=== PATIENT | male | born 1985 | race Hispanic/Latino ===

== ENCOUNTER 2016-11-27 17:37 | Emergency (ER) | payer MEDICAID, OTHER ==
[~2016-11-27] VITALS: Ht 167.6 cm; Wt 95.0 kg
[~2016-11-27 17:37] MED LIST: CLE150 PO; HUM3INSU SQ; NOMED; OXY5 PO
[2016-11-27 17:51] VITALS: BP 158/107; PULSE 88; RESP 18; O2SAT 98
--- NOTE | 2016-11-27 19:27 | ED.REPORT ---
HPI-URI / Cough / Cold Date of Service Nov 27, 2016 ED Provider: Valerie Graham History of Present Illness: sore throat stuffy nose since saturday. slept all day yesterday. sent home from work today. Nursing Notes Stated Complaint: FLU Chief Complaint: FLU/Cold Symptoms Nursing Notes Reviewed: Yes Allergies: Coded Allergies: No Known Allergies (Verified Allergy, Unknown, 04/02/14) Scheduled Clindamycin (Cleocin) 150 Mg Capsule 450 MG PO QID HUM INSULIN NPH/REG - Inactive Drug Entry (Humulin 70-30 - Inactive Drug Entry) 100 Unit/Ml Insuln.pen 0 SQ BID Scheduled PRN oxyCODONE-Expunged, Do Not Renew! 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 11/27/2016 Ambulatory Status Independent Review of Systems Basic Review of Systems Cardiovascular: No chest pain, No dyspnea on exertion, No orthopnea, No parox noct dyspnea, No palpitations : No dysuria, No frequency Musculoskeletal: No extremity swelling, No extremity pain, Full range of motion , Joints NL Hematologic: No bleeding, No bruising Endocrine: No cold intolerance, No heat intolerance, No weight gain, No weight loss Psychiatric: Normal thought content Physical Exam Initial Vital Signs Vital Signs (First) Date Time Temp Pulse Resp B/P Pulse Ox O2 Delivery O2 Flow Rate FiO2 11/27/16 17:51 36.4 88 18 158/107 98 Room Air Initial VS: Reviewed, Vital signs abnormal Head / Eyes: Atraumatic, Normocephalic, PERRL Neck: Supple, Non-tender, Full range of motion Cardiovascular: Regular rate & rhythm, Heart sounds normal, Intact distal pulses Abdomen / GI: Soft, Non-tender, No guarding, No rebound, No distention Back: No CVA tenderness Lymphatic: No lymphadenopathy Extremities: Vascular intact, Neuro intact, No swelling, No tenderness Skin: Warm, Dry, No cyanosis Neurologic: Alert, Oriented, Nonfocal Psychiatric: Mood/affect normal, Behavior normal, Normal thought content General/Constitutional: Awake, Alert, No acute distress, Well appearing, Well developed, Well hydrated ENT: Atraumatic, Airway patent, Mucous membranes moist, Pharynx NL Respiratory / Chest: Atraumatic, Breath sounds NL, Breath sounds = bilat Head / Eyes: Atraumatic, Normocephalic, PERRL, EOMI Interpretation & Diagnostics Lab Results Interpretation Lab Results Interpretation: influenza is negative, strep is negative X-Ray Chest Interpretation Chest Xray Interpretation: NDICATIONS: cough fever TECHNIQUE: 2 views of the chest were acquired. COMPARISON: [facility], , CHEST 1VW, 05/22/2012, 7:44. [facility], CHEST 2VW, 10/09/2009, 15:06. FINDINGS: Surgical changes and devices: None. Lungs and pleura: No pleural effusions or pneumothorax. Lungs are clear. Mediastinum: Mediastinal contours are normal. Heart size is normal. Bones and chest wall: No suspicious bony abnormalities. Soft tissues appear unremarkable. IMPRESSION: No acute cardiopulmonary disease. Discharge & Departure Impression: Primary Impression: Upper respiratory infection URI type: unspecified viral URI Qualified Code: J06.9 - Acute upper respiratory infection, unspecified Disposition: Home Patient Instructions: Upper Respiratory Infection (ED) Additional Instructions: It is so good to see you! I am so proud that you have a job!!! Your influenza is negative. The strep is negative. The chest x-ray is negative. Use ibuprofen 800 mg 3 times a day for 5 days. Push fluids. Note for work, off today tomorrow and . REturn with any concerns. Please stop by and say Hi to Evon, she will be so excited to see you!! Referrals: [facility] EDSupervising Provider for APC: Therese Benavides MD copies to: [facility] Valerie Graham Nov 27, 2016 19:27
[2016-11-27] MEDS ORDERED: Ketorolac 30 mg/mL 2 mL Inj IM ONE (19:35)
--- NOTE | 2016-11-27 20:16 | DRSVH ---
PROCEDURE: X-RAY CHEST, TWO VIEWS ([id number]) INDICATIONS: cough fever TECHNIQUE: 2 views of the chest were acquired. COMPARISON: [facility], CR, CHEST 1VW, 05/22/2012, 7:44. [facility], CR, [address] 2VW, 10/09/2009, 15:06. FINDINGS: Surgical changes and devices: None. Lungs and pleura: No pleural effusions or pneumothorax. Lungs are clear. Mediastinum: Mediastinal contours are normal. Heart size is normal. Bones and chest wall: No suspicious bony abnormalities. Soft tissues appear unremarkable. IMPRESSION: No acute cardiopulmonary disease. Dictated by: Latha Begum M.D. on 11/27/2016 at 20:15 Approved by: Latha Begum M.D. on 11/27/2016 at 20:15
[2016-11-27 20:49] VITALS: BP 115/77; PULSE 88; RESP 18; O2SAT 88
== END 2016-11-27 20:50 | disposition home or self-care (01) ==
LOC: SED 17:37
DX: J06.9 Acute upper respiratory infection, unspecified (principal); F17.200 Nicotine dependence, unspecified, uncomplicated
CPT/HCPCS: 71020; 87804; 87880; 96372; 99284; J1885

== ENCOUNTER 2016-11-30 00:17 | Emergency (ER) | payer OTHER ==
[~2016-11-30] VITALS: Ht 167.6 cm; Wt 94.5 kg
[2016-11-30 00:20] VITALS: BP 135/83; PULSE 105; RESP 16; O2SAT 93
[2016-11-30] MEDS ORDERED: 0.9% Sodium Chloride 1,000 ML IV ONE (01:12)
--- NOTE | 2016-11-30 01:12 | ED.REPORT ---
HPI-General Illness Date of Service Nov 30, 2016 ED Provider: Royce Philip DO A 31 year old male with a history of diabetes and hepatitis C presents to the ED complaining of frequent urination and vomiting. He believes that these symptoms are related to his diabetes. He was recently imprisoned for three years , and was taken off of his diabetic plan while incarcerated. He was not started on insulin and received no treatment. Over the last year, he has begun to feel abnormal with frequent urination. This became progressively worse following his release on 11/20/2016, and was accompanied by frequent vomiting. The pt also admits to recent cough. When the pt checked his sugar prior to arrival, he found it to be 443. Nursing Notes Stated Complaint: DIZZY, VOMITING, FREQUENT URINATION Chief Complaint: General Complaint Nursing Notes Reviewed: Yes Allergies: Coded Allergies: No Known Allergies (Verified Allergy, Unknown, 04/02/14) Scheduled Clindamycin (Cleocin) 150 Mg Capsule 450 MG PO QID HUM INSULIN NPH/REG - Inactive Drug Entry (Humulin 70-30 - Inactive Drug Entry) 100 Unit/Ml Insuln.pen 0 SQ BID Scheduled PRN oxyCODONE-Expunged, Do Not Renew! (oxyCODONE-Expunged, Do Not Renew!) 5 Mg Tablet 0 MG PO Q4H PRN PRN Miscellaneous Medications No Historical Medication (No Historical Medication) Ea General Time Seen by MD: 01:12 Chief Complaint Vomiting Hx Obtained From: Patient Arrived By: Walk-in Sudden in Onset?: No Onset Occurred: More than a week ago... 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 11/27/2016 Ambulatory Status Independent Review of Systems Full Review of Systems Respiratory: Reports: Prod cough, clear, Denies: Shortness of breath Cardiovascular: Denies: Chest pain GI: Reports: Vomiting Male: Reports Urinary frequency Musculoskeletal: Denies: Back pain, Neck pain Skin: Denies Rash Complete sys rev & neg: except as marked. Physical Exam Vital Signs Vital Signs Date Time Temp Pulse Resp B/P Pulse Ox O2 Delivery O2 Flow Rate FiO2 11/30/16 05:09 36.6 88 18 136/82 94 Room Air 11/30/16 03:00 36.5 96 18 142/88 95 Room Air 11/30/16 00:20 36.2 105 16 135/83 93 Room Air Initial VS: Reviewed General/Constitutional: Awake, Alert Head / Eyes: Atraumatic, Normocephalic, PERRL, EOMI ENT: Atraumatic, Airway patent Mouth: Positive: Mucous membranes dry Neck: Atraumatic, Supple, Full range of motion Respiratory / Chest: Atraumatic, No respiratory distress rhonchi and rales mid left lung field Cardiovascular: Regular rhythm, Heart sounds NL Heart Rate / Rhythm: Positive: Tachycardia Abdomen: Atraumatic, Soft, Non-tender Back: Atraumatic, Full range of motion Upper Extremities Upper Extremity / MS: Atraumatic, Full range of motion Lower Extremity / Pelvis / MS: Atraumatic, Full range of motion Skin: Atraumatic, Color NL, No rash, Warm, Dry Neurologic: Oriented X3, Speech NL, No motor deficits, No sensory deficits Psychiatric: Affect NL, Mood NL Interpretation & Diagnostics Lab Results Interpretation Result Diagram: 11/30/16 0110 11/30/16 0110 Test 11/30/16 01:10 11/30/16 01:50 White Blood Count 7.1th/mm3 (3.8-10.1) Red Blood Count 5.08mil/mm3 (4.40-5.80) Hemoglobin 16.0g/dL (13.8-17.2) Hematocrit 46.0% (41.0-50.0) Mean Corpuscular Volume 90.6fL (81-100) Mean Corpuscular Hemoglobin 31.5pg (27.0-35.0) Mean Corpuscular Hemoglobin Concent 34.8% (32.0-37.0) Red Cell Distribution Width 11.9% (12.3-15.4) Platelet Count 209bil/L (150-400) Neutrophils (%) (Auto) 71.9% (40-74) Lymphocytes (%) (Auto) 17.1% (14-46) Monocytes (%) (Auto) 10.8% (4-12) Eosinophils (%) (Auto) 0% (0-5) Basophils (%) (Auto) 0.1% (0-3) Sodium Level 134mEq/L (134-144) Potassium Level 4.5mEq/L (3.5-5.2) Chloride Level 89mEq/L (97-108) Carbon Dioxide Level 26mmol/L (18-29) Blood Urea Nitrogen 16mg/dL (6-20) Creatinine 0.79mg/dL (0.76-1.27) Estimat Glomerular Filtration Rate 120mL/min (>59) Glucose Level 358mg/dL (60-99) Lactic Acid Level 1.9mmol/L (0.4-2.0) Calcium Level 9.7mg/dL (8.5-10.1) Magnesium Level 1.7mg/dL (1.6-2.6) Total Bilirubin 0.7mg/dL (0.0-1.2) Aspartate Amino Transf (AST/SGOT) 42U/L (0-50) Alanine Aminotransferase (ALT/SGPT) 76U/L (0-44) Alkaline Phosphatase 75U/L (25-150) Total Protein 8.3g/dL (6.4-8.4) Albumin 4.7g/dL (3.4-5.0) Lipase 22U/L (13-60) Ketones Negative (Negative) Urine Color Yellow (YELLOW) Urine Appearance Hazy (CLEAR,HAZY) Urine pH 5.5 (5.0-8.0) Urine Specific [place] 1.020 (1.003-1.035) Urine Protein Negativemg/dL (NEG,TRACE) Urine Glucose (UA) >1000mg/dL (NEGATIVE) Urine Ketones 15mg/dL (NEGATIVE) Urine Occult Blood Trace (NEGATIVE) Urine Nitrite Negative (NEGATIVE) Urine Bilirubin Negative (NEGATIVE) Urine Urobilinogen Normalmg/dL (NORMAL) Urine Leukocyte Esterase Negative (NEGATIVE) Urine RBC 0-2/hpf (0-2) Urine WBC 0-5/hpf (0-5) Urine Epithelial Cells Many/hpf (NONE-MOD) Urine Crystals Amorphous urates (NONE Urine Bacteria Few/hpf (NONE-FEW) Urine Hyaline Casts None/lpf (NONE) Urine Granular Casts None seen (NONE SEEN) Urine Waxy Casts None seen (NONE SEEN) Urine Red Blood Cell Casts None seen (NONE SEEN) Urine White Blood Cell Casts None seen (NONE SEEN) Urine Mucus None seen (None Seen) Urine Trichomonas None seen (NONE SEEN) Urine Yeast None (NONE SEEN) Urinalysis Comment None Urine Culture Reflexed Not indicated Pulse Oximetry Interpretation Pulse Oximetry Interpretation: 93% on room air ECG Interpretation ECG Interpretation: normal sinus rhythm with a rate of 94 Time: 01:40 Interpreted by: ED physician X-Ray Chest Interpretation Chest Xray Interpretation: no acute findings Interpretation / Wet Read by: Wet read ED physician Re-Eval/Medical Decision Med Decision/Clinical Course This is a very pleasant 31-year-old diabetic who presents with symptoms of hyperglycemia. He has had polyphagia, polyuria and polydipsia for several months. Evidently has been in halfway for 3 years and he took him off his insulin because he had a normal hemoglobin A1c. He attributes this to his drug use and poor calorie intake. He had been on some 7030 insulin. On examination his vitals were stable. He did have some dry mucous membranes. His breath was not ptotic. Be on that area completely normal physical examination. He was fluid resuscitated. He was given Zofran because he had some bouts of vomiting which I think also worse in the hyperglycemia. He was found to be not in diabetic ketoacidosis. He will be provided follow-up with the residency clinic. He is going to start with lifestyle and diet modification see if he can get his blood sugar under control that way. Evidently it worked when he was abusing drugs and not eating. I do think he is going to end up back on insulin so I recommend very close outpatient follow-up. Source of Hx: Old records Time of Eval: 02:24 Patient Status: Condition improved Re-Evaluation/Progress Note: Pt rechecked, who is feeling better. Radiology results and additional treatments are discussed. The pt agrees with the plan. Counseled Regarding: Diagnosis, Lab results, Need for follow-up, When/why to return to ED Discharge & Departure Primary Impression: Hyperglycemia Additional Impressions: Vomiting Vomiting type: unspecified Vomiting Intractability: non-intractable Nausea presence: unspecified Qualified Code: R11.10 - Vomiting, unspecified Dehydration Disposition: Home Discharge Condition All VS Reviewed: Yes Condition: Stable Patient Instructions: Acute Nausea and Vomiting (ED), Diabetes Mellitus Type 1 in Adults (ED) Additional Instructions: Take Zofran once every 8 hours as needed for vomiting. Stay hydrated and follow a diabetic diet.. Follow up at the [facility] and request to be followed by Dr. Suleman Edwards. Return to the emergency department if you develop any new or worsening symptoms. Diet and exercise will help reduce your blood sugar. Read the after care instructions and begin an exercise program for weight loss. You may need to be back on the insulin so it is essential that you are seen in follow up. Referrals: Clementine Reddy (PCP) Emilyibclark Attestation Portions of this note were transcribed by Saba Michele. I, Dr. Philip personally performed the history, physical exam and medical decision-making; I reviewed and confirmed the accuracy of the information in the transcribed note. Signed by: Herlinda Stevens, 11/30/2016, 01:36 copies to: Nayana Reddy Todd P DO Nov 30, 2016 01:12 SABA MICHELE Nov 30, 2016 01:36 Nataly Hernandez [[place]] Nov 30, 2016 01:55
[2016-11-30] MEDS: Ondansetron 2 mg/mL 2 mL Inj IVPUSH PRN ×2 (01:19→02:34)
[2016-11-30 01:39] LABS: BASOPHILS % (AUTO) 0.1 % (0-3); EOSINOPHILS % (AUTO) 0 % (0-5); MONOCYTES % (AUTO) 10.8 % (4-12); Mean Corpuscular Hemoglobin 31.5 pg (27.0-35.0); Mean Corpuscular Volume 90.6 fL (81-100); NEUTROPHILS % (AUTO) 71.9 % (40-74); Platelet Count 209 bil/L (150-400)
[2016-11-30 02:01] LABS: Magnesium 1.7 mg/dL (1.6-2.6)
[2016-11-30 02:02] LABS: Lipase 22 U/L (13-60)
[2016-11-30] MEDS: 0.9% Sodium Chloride 1,000 ML IV SCH ×2 (02:39→03:40)
[2016-11-30] MEDS ORDERED: _Ondansetron ODT 4 mg Tablet PO PRN (02:45)
[2016-11-30 03:00] VITALS: BP 142/88; PULSE 96; RESP 18; O2SAT 95
[2016-11-30 03:28] LABS: APPEARANCE,URINE HAZY (CLEAR,HAZY); COLOR,URINE YELLOW (YELLOW); OCCULT BLOOD,URINE TRACE (NEGATIVE); PH,URINE 5.5 (5.0-8.0); UROBILINOGEN,URINE NORMAL (NORMAL)
[2016-11-30 05:09] VITALS: BP 136/82; PULSE 88; RESP 18; O2SAT 94
--- NOTE | 2016-11-30 08:06 | DRSVH ---
PROCEDURE: X-RAY CHEST, TWO VIEWS ([id number]) INDICATIONS: cough, diabetic TECHNIQUE: 2 views of the chest were acquired. COMPARISON: 11/27/2016 FINDINGS: Surgical changes and devices: None. Lungs and pleura: No pleural effusions or pneumothorax. Lungs are clear. Mediastinum: Mediastinal contours are normal. Heart size is normal. Bones and chest wall: No suspicious bony abnormalities. Soft tissues appear unremarkable. IMPRESSION: No acute cardiopulmonary abnormality Dictated by: Vazquez Malave M.D. on 11/30/2016 at 8:04 Approved by: Vazquez Malave M.D. on 11/30/2016 at 8:04
== END 2016-11-30 05:10 | disposition home or self-care (01) ==
LOC: SED 00:17
DX: E11.65 Type 2 diabetes mellitus with hyperglycemia (principal); E86.0 Dehydration; R11.10 Vomiting, unspecified; R05 Cough; F17.200 Nicotine dependence, unspecified, uncomplicated
CPT/HCPCS: 36415; 71020; 80053; 81000; 82009; 82948; 83605; 83690; 83735; 85025; 87804; 93005; 96361; 96374; 96376; 99285; J2405; J7030

== ENCOUNTER 2016-12-23 11:50 | Emergency (ER) | payer OTHER ==
[~2016-12-23] VITALS: Ht 167.6 cm; Wt 88.6 kg
[2016-12-23 11:56] VITALS: BP 125/87; PULSE 85; RESP 18; O2SAT 97
--- NOTE | 2016-12-23 12:06 | ED.REPORT ---
HPI-Rash / Abscess Date of Service Dec 23, 2016 ED Provider: History of Present Illness: left upper arm abscess present for 5 or 6 days, unknown tdap. primary care is the residency clinic. Has been using heroin. Nursing Notes Stated Complaint: ABSCESS ON RIGHT ARM Chief Complaint: Skin Rash/Abscess Nursing Notes Reviewed: Yes Allergies: Coded Allergies: No Known Allergies (Verified Allergy, Unknown, 04/02/14) Scheduled Clindamycin (Cleocin) 150 Mg Capsule 450 MG PO QID HUM INSULIN NPH/REG - Inactive Drug Entry (Humulin 70-30 - Inactive Drug Entry) 100 Unit/Ml Insuln.pen 0 SQ BID Scheduled PRN oxyCODONE-Expunged, Do Not Renew! (oxyCODONE-Expunged, Do Not Renew!) 5 Mg Tablet 0 MG PO Q4H PRN PRN Miscellaneous Medications No Historical Medication (No Historical Medication) Ea General Time Seen by MD: 12:02 Chief Complaint Abscess Hx Obtained From: Patient Past Medical History Past Medical History Notes: ANGELITO report shows suboxone prescription provided on 12/19/2016 for #[address] Wilson Past Medical History hepatitis C diabetes anxiety depression Past Surgical History elbow right arm surgery x4 Smoking History Current Every Day Smoker (1 pack a day for 20 years) Social History Alcohol Use: Denies alcohol use Drug Use: Other (heroin) Occupation live with mom work in [place] 11/27/2016 12/23/2016 recently released from skilled nursing, has a job and a car! 11/27/2016. Is not working at present 12/23/2016 Ambulatory Status Independent Review of Systems Basic Review of Systems : No dysuria, No frequency Hematologic: No bleeding, No bruising Endocrine: No cold intolerance, No heat intolerance, No weight gain, No weight loss Neurologic: NL mental status, No weakness, No numbness Psychiatric: Normal thought content Physical Exam Initial Vital Signs Vital Signs (First) Date Time Temp Pulse Resp B/P Pulse Ox O2 Delivery O2 Flow Rate FiO2 12/23/16 11:56 36.6 85 18 125/87 97 Room Air Initial VS: Reviewed, Vital signs normal Head / Eyes: Atraumatic, Normocephalic, PERRL ENT: Mucous membranes moist, Conjunctiva normal, No scleral icterus Neck: Supple, Non-tender, Full range of motion Respiratory: Breath sounds normal, Clear to auscultation, No respiratory distress Cardiovascular: Regular rate & rhythm, Heart sounds normal, Intact distal pulses Abdomen / GI: Soft, Non-tender, No guarding, No rebound, No distention Back: No CVA tenderness Lymphatic: No lymphadenopathy Extremities: Vascular intact, Neuro intact, No swelling, No tenderness Neurologic: Alert, Oriented, Nonfocal Psychiatric: Mood/affect normal, Behavior normal, Normal thought content General/Constitutional: Awake, Alert, No acute distress, Well appearing, Well developed, Well hydrated Rash / Lesion Notes: abscess on left upper arm Procedures Incision & Drainage Abscess Time: 12:15 Procedure Performed by: Allied health pract Consent / Setup / Site Prep: Informed consent provided, Consent from patient , Hand hygiene observed Skin Preparation Agent: Betadine Local Anesthesia: Lidocaine w epi 1%, 5cc, 27g needle Incised Abscess with Scalpel: #11 Pus Drained: Medium, Purulent discharge Irrigation: Yes, 150 cc Post-Procedure / Complications: Packing placed, Culture obtained, Gram stain ordered, Dressing applied, No complications, Condition improved, Tolerated procedure well, Patient stable Discharge & Departure Impression: Primary Impression: Abscess Disposition: Home Patient Instructions: Abscess (ED), Abscess Incision and Drainage (ED) Additional Instructions: The area has been opened and a large amount of discharge was expressed. Because of your diabetes, you will be started on bactrim, take 1 in the am and pm for 7 days. REturn on Saturday for a wound check. Sooner if the skin looks like a sun burn. Use ibuprofen 800 mg 3 times a day for any discomfort. Referrals: [facility] EDSupervising Provider for APC: Wing Haynes MD copies to: [facility] Valerie Graham Dec 23, 2016 12:06
[2016-12-23] MEDS ORDERED: TdaP Vaccine 0.5 mL Inj IM ONE (12:15)
[2016-12-23 12:46] VITALS: BP 122/89; PULSE 86; RESP 18; O2SAT 97
== END 2016-12-23 12:46 | disposition home or self-care (01) ==
LOC: SED 11:50
DX: L02.414 Cutaneous abscess of left upper limb (principal); E11.9 Type 2 diabetes mellitus without complications; F17.200 Nicotine dependence, unspecified, uncomplicated; Z98.890 Other specified postprocedural states; Z23 Encounter for immunization

== ENCOUNTER 2016-12-25 14:23 | Emergency (ER) | payer OTHER ==
[~2016-12-25] VITALS: Ht 167.6 cm; Wt 88.2 kg
[2016-12-25 14:26] VITALS: BP 119/83; PULSE 92; RESP 16; O2SAT 95
--- NOTE | 2016-12-25 14:39 | ED.REPORT ---
HPI-Recheck W/B/S Date of Service Dec 25, 2016 ED Provider: Doc,Ed MD History of Present Illness: doing better, swelling decreased. abscess on left upper arm. opened 2 days ago and started on antibiotic. positive DM Nursing Notes Stated Complaint: WOUND CHECK Chief Complaint: Wound Recheck/Suture Removal Nursing Notes Reviewed: Yes Allergies: Coded Allergies: No Known Allergies (Verified Allergy, Unknown, 04/02/14) Scheduled Clindamycin (Cleocin) 150 Mg Capsule 450 MG PO QID HUM INSULIN NPH/REG - Inactive Drug Entry (Humulin 70-30 - Inactive Drug Entry) 100 Unit/Ml Insuln.pen 0 SQ BID Scheduled PRN oxyCODONE-Expunged, Do Not Renew! (oxyCODONE-Expunged, Do Not Renew!) 5 Mg Tablet 0 MG PO Q4H PRN PRN Miscellaneous Medications No Historical Medication (No Historical Medication) Ea General Time Seen by Provider: 14:39 Chief Complaint Wound check Wound / Injury Type: Abscess Prior Tx of Wound / Injury: Antibiotics, oral, Incision & drainage, Wound packed Hx Obtained From: Patient Onset Occurred: 5 days ago Progression Since Onset: Rapidly improving Past Medical History Past Medical History Notes: ANGELITO report shows suboxone prescription provided on 12/19/2016 for #[address] Wilson Past Medical History hepatitis C diabetes anxiety depression Past Surgical History elbow right arm surgery x4 Smoking History Current Every Day Smoker Social History Alcohol Use: Denies alcohol use Drug Use: Other Occupation live with mom work in [place] 11/27/2016 12/23/2016 recently released from intermediate, has a job and a car! 11/27/2016. Is not working at present 12/23/2016 Ambulatory Status Independent Review of Systems Basic Review of Systems Eyes: Vision NL, No discharge ENT: Hearing NL, No pain, No nasal congestion, No pharyngeal pain Respiratory: No shortness of breath, No cough, No wheeze Cardiovascular: No chest pain, No dyspnea on exertion, No orthopnea, No parox noct dyspnea, No palpitations GI: No abdominal pain, No anorexia, No nausea, No vomiting : No dysuria, No frequency Musculoskeletal: No extremity swelling, No extremity pain, Full range of motion , Joints NL Hematologic: No bleeding, No bruising Endocrine: No cold intolerance, No heat intolerance, No weight gain, No weight loss Allergy / Immune: No allergy Neurologic: NL mental status, No weakness, No numbness Psychiatric: Normal thought content Physical Exam Initial Vital Signs Vital Signs (First) Date Time Temp Pulse Resp B/P Pulse Ox O2 Delivery O2 Flow Rate FiO2 12/25/16 14:26 36.8 92 16 119/83 95 Initial VS: Reviewed, Vital signs normal General/Constitutional: Well-developed, Well-nourished Head / Eyes: Atraumatic, Normocephalic, PERRL ENT: Mucous membranes moist, Conjunctiva normal, No scleral icterus Neck: Supple, Non-tender, Full range of motion Respiratory: Breath sounds normal, Clear to auscultation, No respiratory distress Cardiovascular: Regular rate & rhythm, Heart sounds normal, Intact distal pulses Abdomen / GI: Soft, Non-tender, No guarding, No rebound, No distention Back: No CVA tenderness Lymphatic: No lymphadenopathy Extremities: Vascular intact, Neuro intact, No swelling, No tenderness Neurologic: Alert, Oriented, Nonfocal Psychiatric: Mood/affect normal, Behavior normal, Normal thought content Rash / Lesion Notes: packing is removed witout difficulty, no additional discharge out. wound repacked and covered. Reviewed home care instructions and supplies sent with patient General/Constitutional: Awake, Alert, No acute distress ENT: Atraumatic, Airway patent, Mucous membranes moist, Pharynx NL Respiratory / Chest: Atraumatic, Breath sounds NL, Breath sounds = bilat Cardiovascular: Heart rate NL, Regular rhythm, Heart sounds NL c/o of yeast infection Procedures Procedure Notes: packing removed, wound repacked and redressed. Discharge & Departure Impression: Primary Impression: Abscess Additional Impression: Yeast infection Disposition: Home Patient Instructions: Abscess (ED) Additional Instructions: The site looks great! You can do a dressing change on and then on Saturday. On Saturday, it may be ready to stop the packing. Then apply bacitracin in the wound to help it heal. Start diflucan 150 mg after finishing the antibiotics, then repeat in 3 days. You have supplies for your dressing change and a prescription for the diflucan. Return with any concerns. Follow with primary care as needed. Referrals: Clementine Reddy (PCP) EDSupervising Provider for APC: Leonardo Baker MD copies to: Clementine Reddy Sue ARNP Dec 25, 2016 14:39
== END 2016-12-25 15:35 | disposition home or self-care (01) ==
LOC: SED 14:23
DX: L02.412 Cutaneous abscess of left axilla (principal); B37.9 Candidiasis, unspecified; E11.9 Type 2 diabetes mellitus without complications; F17.200 Nicotine dependence, unspecified, uncomplicated; Z48.01 Encounter for change or removal of surgical wound dressing; Z79.4 Long term (current) use of insulin